=== PATIENT | male | born 1935 | race Caucasian/White ===

== ENCOUNTER 2020-03-16 07:13 | Day surgery (SDC) | payer OTHER, MEDICARE ==
[2020-03-10 12:26] VITALS: BMI 30.9
[2020-03-16] MEDS ORDERED: MIDAZOLAM HCL 2 MG/2 ML SINGLE DOSE VIAL ONE ×2 (08:29→09:54)
[2020-03-16] MEDS ORDERED: LIDOCAINE 1%/EPI 1:100000 (20 ML MULTI DOSE VIAL) ONE (08:37)
[2020-03-16] MEDS ORDERED: TETRACAINE 0.5% OPHTH SOLN 2 ML BOTTLE ONE (08:37)
[2020-03-16] MEDS ORDERED: ERYTHROMYCIN 0.5% OPHTHALMIC OINTMENT 3.5 GM TUBE ONE (08:37)
[2020-03-16] MEDS ORDERED: POVIDONE-IODINE 5% OPHTHALMIC PREP 30 ML SOLUTION ONE (08:37)
[2020-03-16] MEDS ORDERED: BUPIVACAINE HCL/PF 0.5% (5MG/ML) 10 ML VIAL ONE (08:37)
[2020-03-16] MEDS ORDERED: ceFAZolin SODIUM 1 GM VIAL ONE (09:14)
[2020-03-16] MEDS ORDERED: ONDANSETRON 4 MG/2 ML VIAL ONE (09:24)
[2020-03-16] MEDS ORDERED: GLYCOPYRROLATE 0.2 MG/1 ML VIAL ONE (09:45)
[2020-03-16] MEDS ORDERED: oxyCODONE HCL 5 MG TABLET PO PRN (11:36)
[2020-03-16] MEDS ORDERED: ONDANSETRON 4 MG/2 ML VIAL IVPUSH PRN (11:36)
[2020-03-16] MEDS ORDERED: LACTATED RINGERS SOLUTION 1,000 ML IV SCH (11:45)
[2020-03-16 12:46] VITALS: TEMP 98
[2020-03-16 13:35] VITALS: PULSE 67
[2020-03-16 14:12] VITALS: BP 128/78
--- NOTE | 2020-03-17 12:17 | OP ---
DATE OF OPERATION: 03/16/2020 PREOPERATIVE DIAGNOSIS: Laxity, both lower lids, with punctal stenosis, punctal verticalization, and epiphora, both eyes. POSTOPERATIVE DIAGNOSIS: Laxity, both lower lids, with punctal stenosis, punctal verticalization, and epiphora, both eyes. PROCEDURE: 1. Lateral tarsal strip, right lower lid; lateral tarsal strip, left lower lid. 2. Conjunctivoplasty with punctal inversion, right. Brenda cautery and conjunctivoplasty with punctal inversion, left. Punctoplasty, right lower lid. Punctoplasty, left lower lid, and medial canthal tendon plication, left medial canthus. SURGEON: Mallika Vides MD ANESTHESIA: Local with sedation. COMPLICATIONS: None. ESTIMATED BLOOD LOSS: 3-5 mL. OPERATIVE REPORT: Patient brought to the operating room, placed on the operating room table. Vital signs were monitored by Anesthesia. Tetracaine was placed in both eyes. IV sedation was administered. Timeout was performed. Lateral canthal lines were marked at the lateral canthus, and the medial canthal line in a curvilinear S-shaped fashion was marked over the medial canthal tendon, extending toward the nasal left lower lid. A 50/50 mixture of 2% Xylocaine, 1:100,000 epinephrine, 2.5% Marcaine was now injected at the lateral canthus down to periosteum, lateral corner of the upper and lower lids on both sides, medial canthus along the medial lower lid and medial canthal tendon on the left, and subconjunctivally in the nasal palpebral conjunctiva bilaterally. Massage was applied for hemostasis. Patient was prepped and draped in the usual sterile fashion, exposing both eyes. The right eye was approached first. Lateral canthal incision was made with a 15-blade, carried down to the periosteum with [place] needle. Inferior leeanne of the lateral canthal tendon was from the orbital rim with sharp dissection. It was overlapped at the orbital rim. It was determined that the medial canthal tendon on this side was not sufficiently lax to require any medial canthal tendon plication. Therefore, the overlapped lower lid was marked, divided into an anterior and posterior lamella with a No. 11 blade. The anterior lamella was excised. Posterior lamella was denuded of epithelium posteriorly and superiorly, and the double-arm 5-0 Prolene was passed through the tarsal strip and then through the internal surface of the orbital rim at the junction with the superior leeanne of the lateral canthal tendon, reinforced with two 6-0 Vicryl lasso sutures. This was not tied. A subpunctal rhiannon of conjunctival retractors was removed, and this was closed with 1 buried 5-0 chromic suture to invert the punctum, and the punctum was dilated and intubated with a probe, and then a posterior snip punctoplasty was performed, and the punctum was re-dilated, completing the punctoplasty, the conjunctivoplasty, the punctal inversion, and the lateral tarsal strip. The lateral canthal angle was then re-formed with a buried 5-0 chromic through the castillo line of the upper and lower lids. The chromic was tied, the Prolene was tied. The excess tarsal strip was excised, and it was sutured over the Prolene tie with a 5-0 chromic. Antibiotic irrigation was used throughout the case. The muscle layer was closed with buried 5-0 chromic and the skin with a running 6-0 plain suture. Attention was turned to the left lower lid. Similar procedure was performed; however, this medial canthal tendon was found to be too lax, extending beyond the nasal limbus, therefore curvilinear incision of the left medial canthus was first performed with a 15-blade, then dissection was carried over the tarsotendinous junction and over the medial canthal tendon, and a double-arm 5-0 Prolene was used to grab the tarsotendinous junction, tunneling underneath the orbicularis and then exit through the undersurface of the anterior limb of the medial canthal tendon, and this was tied, preventing the punctum, not kinking it, but preventing the punctum from migrating beyond the nasal limbus. The knot was buried, and the wound was closed, after antibiotic irrigation, with a running 6-0 plain suture. This completed the left medial canthoplasty and medial canthal tendon plication. A lateral canthal incision was made at the left lateral canthus down to periosteum. Hemostasis was achieved with cautery. The inferior leeanne of the lateral canthal tendon was released, overlapped over the orbital rim, marked with sterile marking pen, divided into an anterior and posterior lamella. The anterior lamella was excised. The posterior lamella was denuded of epithelium posteriorly and superiorly, and then the tarsal strip was secured with double-arm 5-0 Prolene, reinforced with two 6-0 Vicryl sutures, sutured into the internal surface of the orbital rim to be symmetric with the contralateral side. The lower punctum was dilated, intubated with a probe and a dilator, and then posterior snip punctoplasty was performed, and then it was re-dilated, demonstrating a good punctoplasty. Brenda cautery was placed in the inferior conjunctiva below the punctum to result in a contracture and punctal inversion. The lateral canthal angles were formed with buried 5-0 chromics in the castillo line of the upper and lower lid, and then the Prolene was tied, attaching the tarsal strip to the orbital rim. The excess tarsal strip was excised, and it was sutured over the Prolene with a 5-0 chromic. The muscle layer was closed with a single 5-0 chromic after antibiotic irrigation, and the skin was closed with running 6-0 plain suture. Erythromycin was placed in the eye and on the sutures of the lateral canthus and medial canthus, and the patient was taken to recovery room in stable condition. MALLIKA VIDES M.D. [id number]
== END 2020-03-16 14:40 | disposition home or self-care (01) ==
LOC: FASU 07:13
PROVIDERS: ATTEND Ophthalmology
PROC: 08BQ0ZZ Excision of Right Lower Eyelid, Open Approach (ICD-10-PCS; 2020-03-16)
PROC: 08BR0ZZ Excision of Left Lower Eyelid, Open Approach (ICD-10-PCS; principal; 2020-03-16 09:14)
DX: H02.112 Cicatricial ectropion of right lower eyelid (principal); H02.115 Cicatricial ectropion of left lower eyelid; H04.563 Stenosis of bilateral lacrimal punctum; H04.203 Unspecified epiphora, bilateral
CPT/HCPCS: 94760